=== PATIENT | male | born 2000 | race Caucasian/White ===

== ENCOUNTER → 2021-09-13 | Outpatient (CLI) | payer OTHER ==
--- NOTE | 2021-09-13 16:18 | Diagnostic Imaging Report ---
PROCEDURE: US Scrotum. TECHNIQUE: Multiple real-time grayscale images were obtained over the scrotum in various projections bilaterally. INDICATION: Left hydrocele. The right testicle measures 4.5 x 2.3 x 3.0 cm and the left testicle measures 3.8 x 1.4 x 1.7 cm. Both testes show homogeneous echotexture. No discrete testicular mass is identified. There is blood flow to both testes. The right epididymis is unremarkable. Left epididymis was not well-visualized. There is a small right hydrocele. There is a large left hydrocele with internal echoes. No varicocele is detected. IMPRESSION: 1. No evidence of testicular mass or vascular compromise. 2. Large left hydrocele with internal debris which could represent hematocele or pyocele. 3. Small right hydrocele. Dictated by: Dictated on workstation # [id number]
== END ==
LOC: RAD 14:44
PROVIDERS: ATTEND Urology
DX: N43.3 Hydrocele, unspecified (principal)
CPT/HCPCS: 76870

== ENCOUNTER 2021-11-11 09:26 | Outpatient (RCR) | payer OTHER ==
[2021-10-29 10:31] LABS: BASOPHILS % (AUTO) 1 % (0-10); EOSINOPHILS # (AUTO) 0.3 10^3/uL (0.0-0.3); EOSINOPHILS % (AUTO) 8 % (0-10); HEMATOCRIT 44 % (40-54); HEMOGLOBIN 14.7 g/dL (13.3-17.7); LYMPHOCYTES # (AUTO) 1.2 10^3/uL (1.0-4.0); LYMPHOCYTES % (AUTO) 31 % (12-44); MEAN CORPUSCULAR HEMOGLOBIN 30 pg (25-34); MEAN CORPUSCULAR HGB CONC 33 g/dL (32-36); MEAN CORPUSCULAR VOLUME 89 fL (80-99); MEAN PLATELET VOLUME 8.5 fL (9.0-12.2); MONOCYTES # (AUTO) 0.2 10^3/uL (0.0-1.0); MONOCYTES % (AUTO) 5 % (0-12); NEUTROPHILS # (AUTO) 2.1 10^3/uL (1.8-7.8); NEUTROPHILS % (AUTO) 55 % (42-75); PLATELET COUNT 262 10^3/uL (130-400); WHITE BLOOD COUNT 3.9 10^3/uL (4.3-11.0)
[2021-10-29 10:45] LABS: ALBUMIN 4.6 GM/DL (3.2-4.5); POTASSIUM 5.6 MMOL/L (3.6-5.0)
[2021-10-29 10:46] LABS: CALCIUM 9.7 MG/DL (8.5-10.1)
[2021-10-29 10:48] LABS: TOTAL PROTEIN 7.5 GM/DL (6.4-8.2)
[2021-10-29 10:50] LABS: BILIRUBIN,TOTAL 0.4 MG/DL (0.1-1.0)
[2021-10-29 10:51] LABS: CREATININE SERUM 1.14 MG/DL (0.60-1.30)
[2021-10-29 10:53] LABS: BILIRUBIN,DIRECT 0.2 MG/DL (0.0-0.3); BILIRUBIN,INDIRECT 0.2 MG/DL
== END 2021-11-27 | disposition home or self-care (01) ==
LOC: LAB 09:26
PROVIDERS: ATTEND Nurse Practitioner Pediatrics
DX: Q27.9 Congenital malformation of peripheral vascular system, unspecified (principal)
CPT/HCPCS: 36415; 80048; 80061; 80076; 80195; 85025